=== PATIENT | male | born 1995 | race Hispanic/Latino ===

== ENCOUNTER 2022-01-08 16:35 | Emergency (ER) | payer SELFPAY ==
[~2022-01-08] VITALS: Ht 162.6 cm; Wt 63.6 kg
[2022-01-08] VITALS (9 sets, daily range): BP systolic 132–161; BP diastolic 81–127
[2022-01-08 17:43] LABS: URINE BLOOD DIPSTICK LARGE (NEGATIVE); URINE COLOR YELLOW; URINE GLUCOSE - DIPSTICK NEGATIVE (NEGATIVE); URINE KETONE 15 mg/dL (NEGATIVE); URINE LEUK ESTERASE NEGATIVE (NEGATIVE); URINE PH 5.5 (4.5-8.0); URINE PROTEIN - DIPSTICK 30 mg/dL (NEG-TRACE); URINE SPECIFIC GRAVITY >=1.030; URINE UROBILINOGEN - DIPSTICK 0.2 E.U./dL (0.2)
[2022-01-08 17:47] LABS: URINE BILIRUBIN - DIPSTICK SMALL (NEGATIVE); URINE NITRITE - DIPSTICK NEGATIVE (Negative)
[2022-01-08 17:54] LABS: URINE WBC 0-2 WBC/hpf (0-5)
[2022-01-08 18:20] LABS: HEMATOCRIT 42.8 % (39.0-50.0); HEMOGLOBIN 14.7 g/dl (14.0-18.0); IMMATURE GRANULOCYTES 1.5 % (0.0-5.0); MEAN CELL VOLUME 82.8 fL CALC (80.0-100.0); MEAN CORPUSCULAR HGB 28.4 pG CALC (26.0-32.0); MEAN CORPUSCULAR HGB CONC 34.3 g/dL CAL (32.0-36.0); NEUT# 11.44 thou/uL (1.82-7.42); RED BLOOD COUNT 5.17 mill/uL (4.70-6.10)
[2022-01-08 18:42] LABS: ALBUMIN 4.6 g/dL (3.2-5.0); ALKALINE PHOSPHATASE 61 u/l (38-126); ANION GAP 16 (6-22 (CALC)); BILIRUBIN, TOTAL 0.5 mg/dL (0.0-1.4); BUN 19 mg/dL (9-20); BUN/CREATININE RATIO 16 (12-20 (CALC)); CARBON DIOXIDE 22 mmol/l (22-30); CHLORIDE 108 mmol/l (95-108); CREATININE 1.2 mg/dL (0.7-1.3); GFR FOR AFR.AMER. > 60 ML/MIN (>=60 (CALC)); GFR OTHER RACES > 60 ML/MIN (>=60 (CALC)); POTASSIUM 3.5 mmol/l (3.5-5.1); SGOT/AST 61 u/l (17-59); SODIUM 143 mmol/l (137-146); TOTAL PROTEIN 8.3 g/dL (6.3-8.2)
[2022-01-08] MEDS ORDERED: TESSALON PERLE100 MG PO (19:48)
[2022-01-08] MEDS ORDERED: KEFLEX500 MG PO (19:48)
[2022-01-08] MEDS ORDERED: TORADOL PO (19:48)
[2022-01-08] MEDS ORDERED: TAMSULOSIN0.4 MG PO (19:48)
== END 2022-01-08 20:15 | disposition home or self-care (01) | DRG 694 ==
LOC: ED 16:35
PROVIDERS: Family Medicine
DX: N20.1 Calculus of ureter (principal); R05.9 Cough, unspecified; R91.1 Solitary pulmonary nodule